=== PATIENT | female | born 1955 | race Caucasian/White ===

== ENCOUNTER 2017-04-01 02:54 | Inpatient (IN) | payer SELFPAY ==
[~2017-04-01] VITALS: Ht 152.4 cm; Wt 43.1 kg
[2017-04-01] VITALS (18 sets, daily range): BP systolic 123–185; BP diastolic 59–83
[2017-04-01] MEDS ORDERED: methylPREDNISolone SOD SUCC PF 125 MG/2 ML VIAL. IV ONE (03:15)
[2017-04-01] MEDS ORDERED: HYDROmorphone PF 1 MG/ML DISP.SYRIN IV/SQ PRN (03:15)
[2017-04-01] MEDS ORDERED: 0.9 % SODIUM CHLORIDE 10 ML DISP.SYRIN. IV PRN (03:15)
--- NOTE | 2017-04-01 03:27 | PHYS DOC ---
Past History Past Medical History: COPD Smoking: Cigarettes, Greater than 1 pack/day Adult General Chief Complaint Chief Complaint: shortness of breath [facility] HPI Patient is a pleasant 61-year-old female with a history of COPD who presents with sudden onset of chest pain and shortness of breath began about 2 hours prior to arrival. She is a female who smokes daily between a half pack and a pack. sHe normally uses her inhalers at home twice a day but woke up this morning with chest pressure and pain with palpitation and an increased heart rate. There is a remote history of questionable mitral valve prolapse as well as COPD. patient admits to fevers and chills with this productive cough and increasing chest pain. Pain is considered constant in the center of her chest with no radiation to her back or shoulders or arms. She cannot get comfortable and sits in a tripod position speaking only 2 to 4. sentences. Patient is not normally on oxygen at home. Review of Systems Review of Systems Constitutional: sHe describes some fevers and chills. Eyes: Denies change in visual acuity, redness, or eye pain [] HENT: Denies nasal congestion or sore throat [] Respiratory: He describes a productive cough with increasing shortness of breath. Cardiovascular: No additional information not addressed in HPI [] GI: Denies abdominal pain, nausea, vomiting, bloody stools or diarrhea [] : Denies dysuria or hematuria [] Musculoskeletal: Denies back pain or joint pain [] Integument: Denies rash or skin lesions [] Neurologic: Denies headache, focal weakness or sensory changes [] Endocrine: Denies polyuria or polydipsia [] Physical Exam Physical Exam Constitutional: Patient is very frail thin cachectic and in obvious distress. She is sitting in a tripod position speaking in 4 word sentences there is no obvious retractions but patient has some difficulty breathing. HENT: Normocephalic, atraumatic, bilateral external ears normal, very dry mucous membranes, no oral exudates, nose normal. Impression demonstrates temporal wasting bilaterally [] Eyes: PERRLA, EOMI, conjunctiva normal, no discharge. [] Neck: Normal range of motion, no tenderness, supple, no stridor. [] Cardiovascular: Tachycardia with a irregular irregular rhythm Lungs & Thorax: Decreased breath sounds bilaterally with prolonged exhalation wheezes throughout the lung bases bilaterally with coarse rhonchi Abdomen: Bowel sounds normal, soft, no tenderness, no masses, no pulsatile masses. [] Skin: Warm, dry, skin is pale with bruises in those states of healing. Back: No tenderness, Extremities: No tenderness, no cyanosis, no clubbing, ROM intact, no edema. [] Neurologic: Alert and oriented X 3, normal motor function, normal sensory function, no focal deficits noted. [] Psychologic: She is very anxious but judgment is normal. Patient's cognition seems to be intact. Current Patient Data Vital Signs Vital Signs Date Time Temp Pulse Resp B/P (MAP) Pulse Ox O2 Delivery O2 Flow Rate FiO2 04/01/17 03:35 135 110/50 Vital Signs Date Time Temp Pulse Resp B/P (MAP) Pulse Ox O2 Delivery O2 Flow Rate FiO2 04/01/17 03:35 135 110/50 Lab Results Laboratory Tests Test 04/01/17 03:10 04/01/17 03:15 Blood pH 7.41 (7.35-7.45) Blood Gas PCO2 24 mmHg (35-45) L Blood Gas PO2 64 mmHg (80-100) L Blood Gas HCO3 15 mmol/L (22-26) L Arterial Bld O2 Saturation (Calc) 93 % (92-99) FiO2 36 % Sodium Level 134 mmol/L (136-145) L Potassium Level 4.0 mmol/L (3.5-5.1) Chloride Level 98 mmol/L (98-107) Carbon Dioxide Level 19 mmol/L (21-32) L Anion Gap 17 (6-14) H Blood Urea Nitrogen 58 mg/dL (7-20) H Creatinine 4.1 mg/dL (0.6-1.0) H Estimated GFR (Cockcroft-Gault) 11.0 BUN/Creatinine Ratio 14 (6-20) Glucose Level 102 mg/dL (70-99) H Lactic Acid Level 2.0 mmol/L (0.4-2.0) Calcium Level 9.3 mg/dL (8.5-10.1) Magnesium Level 2.1 mg/dL (1.8-2.4) Total Bilirubin 0.8 mg/dL (0.2-1.0) Aspartate Amino Transferase (AST) 34 U/L (15-37) Alanine Aminotransferase (ALT) 47 U/L (14-59) Alkaline Phosphatase 298 U/L (46-116) H Creatine Kinase 166 U/L (26-192) Creatine Kinase MB (Mass) 3.9 ng/mL (0.0-3.6) H Creatine Kinase MB Relative Index 2.3 % (0-4) Troponin I Quantitative 0.098 ng/mL (0-0.055) H BN-Mlw-Q-Type Natriuretic Peptide Pending Total Protein 7.8 g/dL (6.4-8.2) Albumin 3.1 g/dL (3.4-5.0) L Albumin/Globulin Ratio 0.7 (1.0-1.7) L Lipase 105 U/L (73-393) Laboratory Tests Test 04/01/17 03:15 Lactic Acid Level 2.0 mmol/L (0.4-2.0) EKG EKG [] EKG timed 3:14 AM 04/01/2017 demonstrates a tachycardia of 152 is irregular and narrow in nature. There is no discernible P waves every QRS. The QRS width is normal at 96. QTc is 481 which is mildly elevated. There is no ST segment T- wave changes consistent with acute cardiac ischemia at this rate is a small right anterior fascicular block. There is also some demonstration of LVH in aVL greater than 11 mV. EKG read by Dr. Duval Radiology/Procedures Radiology/Procedures [] Single view AP chest film from 3:36 AM 04/01/[address] Duval shows mild cardiomegaly with haziness along the right heart border nose distinct infiltrate. Patient has increased pulmonary markings and hyperinflation consistent with COPD exacerbation. Patient may have a mass in the right lower lung measuring once admitted by 1 cm on the lateral aspect of the lung field. Patient is no pneumothorax no pneumomediastinum or air under the diaphragm. Course & Med Decision Making Course & Med Decision Making Pertinent Labs and Imaging studies reviewed. (See chart for details) upon arrival I reviewed nursing notes vital signs history and physical findings as well as EMS report. Patient presents with a tachycardia that is irregular. She is also short of breath with wheezing. We will initially begin with fluids, Solu -Medrol, and DuoNeb as for her lungs we will draw lactic acid and blood cultures provider oxygen supplementation and something for her anxiety. We will empirically treat her with antibiotics. She will also have a CBC, CMP, troponin , CK-MB, TSH, chest x-ray EKG completed. Patient will also be given aspirin, fentanyl, and an ABG will be completed. At this point patient will be also provided a dose of diltiazem to try to rate control the age or fibrillation. Once patient's is stabilized we will analyze ABG and determine if we need to use CPAP to treat her symptoms. Differential diagnosis: Acute myocardial ischemia, heart failure, cardiac tamponade, bronchospasm, pulmonary embolism, pneumothorax, pulmonary infection i.e. bronchitis or pneumonia, upper airway obstruction, anaphylaxis, aspiration , psychogenic, pulmonary contusion, toxidrome, pneumomediastinum, noncardiogenic pulmonary edema or ARDS, COPD, tuberculosis, cystic fibrosis, asthma, high altitude pulmonary edema, valvular dysfunction, cardiac dysrhythmia , stroke, neuromuscular diseases like myasthenia gravis gravis, ALS, Guillain- Beltran syndrome, metabolic acidosis to include diabetic ketoacidosis, sepsis, and obstructive disorders like massive obesity considered upon arrival. Patient tells me that their symptoms given during CC are improved. Time is now 3 :55 AM patient received DuoNeb, Solu-Medrol, fluids, anxiety medications and dose of diltiazem in an attempt to rate control her atrial fibrillation. She started feeling markedly better. Jewelry Casting Model Maker Apprentice note: Dr. Muller Jewelry Casting Model Maker Apprentice called at of the service called service at 3:43 AM Consult called back at 3:43 AM Discussed the case I presented and they agreed with admission. Time of acceptance 3:43 am. This patient had not received the full treatment, it was apparent on her full dictation that she would likely not be going home. Patient' s heart rate at 355 is still 120s. She will received a second dose of diltiazem and put on a diltiazem drip if required the help rate control her. Her ABG which came back at approximately 3:36 AM demonstrates a pH 7.4 PCO2 of 24 PaO2 of 54 bicarbonate 15. This demonstrates respiratory alkalosis with likely a metabolic acidosis she will continue on the nasal cannula's with DuoNeb's. She' s been given a dose of Rocephin antibiotics after blood cultures and lactic acid been completed. In anticipation that she might have pneumonia associated with her respiratory difficulties. [] Impression: COPD exacerbation, chest pain secondary to age or fibrillation RVR I spent approximately 45-50 minutes working and engaged directly in the patient care providing critical care evaluation this includes but not limited to time spent engaged in work directly related to the individual patients care. I spent time at the bedside, reviewing test results, discussing the case with staff, documenting the medical record and time spent with EMS discussing specific treatment issues when the patient presented and during his evaluation. Lab called at approximately 4:19 AM with an elevated troponin 0.09. I believe that this may be associated with patient's rate of 140 and her history of COPD and chronic lung disease. I will page cardiology available accountant controller discuss this case. Jewelry Casting Model Maker Apprentice note: Cardiology on-call Jewelry Casting Model Maker Apprentice called at of the service called at 4:20 AM Consult called back at 4:25 AM Discussed the case I presented and they agreed with admission. Time of acceptance he agreed with treatment plan of diltiazem for rate control and on a drip. He also suggested possibly a 0.5 mg dose of digoxin IV slow push out with her rate. Although her troponin is mildly elevated I believe is related to rate. Will see this patient in the ICU in about 2 hours. If her troponins continue to trend up and her EKG has any changes we will transfer to [facility] for PCI intervention if necessary or cardioversion if her symptoms continue. It is also noted that her troponin may be elevated secondary to her renal failure. Patient has already received 1 L of fluids here in the emergency department. She is also receiving a continued maintenance fluids in the ICU. We may need to be more aggressive with fluid management the suprapubic or kidney function to return. Dragon Disclaimer Dragon Disclaimer This chart was dictated in whole or in part using Voice Recognition software in a busy, high-work load, and often noisy Emergency Department environment. It may contain unintended and wholly unrecognized errors or omissions. Departure Departure: Impression: Primary Impression: COPD exacerbation Additional Impressions: Chest pain Atrial fibrillation with RVR Elevated troponin Renal failure Disposition: ADMITTED INPATIENT Admitting Physician: Jeanie Muller Condition: GUARDED Referrals: WINIFRED CARBAJAL DO (PCP) Problem Qualifiers NIRAJ DUVAL MD Apr 01, 2017 03:27
[2017-04-01] MEDS ORDERED: dilTIAZem 25 MG/5 ML VIAL IVP ONE ×2 (03:30→04:30)
[2017-04-01] MEDS ORDERED: LORazepam 2 MG/ML VIAL ONE (03:37)
[2017-04-01] MEDS ORDERED: IV NORMAL SALINE 1,000ML 1,000 ML IV SCH ×2 (03:54→04:00)
[2017-04-01] MEDS ORDERED: ACETAMINOPHEN 325 MG TABLET PO PRN (04:00)
[2017-04-01] MEDS ORDERED: ONDANSETRON PF 4 MG/2 ML VIAL. IV PRN (04:00)
[2017-04-01] MEDS ORDERED: NITROGLYCERIN SUBLINGUAL 0.4 MG BOTTLE OF 25. SL PRN (04:00)
[2017-04-01] MEDS ORDERED: IPRATRPIUM/ALBUTEROL 0.5/2.5MG 3 ML NEBU. NEB ONE ×3 (04:00→04:30)
[2017-04-01] MEDS ORDERED: LORazepam 2 MG/ML VIAL IV ONE (04:00)
[2017-04-01] MEDS ORDERED: ASPIRIN 81 MG TAB.CHEW PO ONE (04:00)
[2017-04-01] MEDS ORDERED: HYDROmorphone PF 1 MG/ML DISP.SYRIN IV PRN (04:00)
[2017-04-01 04:13] LABS: ALBUMIN 3.1 g/dL (3.4-5.0); ALBUMIN/GLOBULIN RATIO 0.7 (1.0-1.7); CALCIUM 9.3 mg/dL (8.5-10.1); CREATININE 4.1 mg/dL (0.6-1.0); MAGNESIUM 2.1 mg/dL (1.8-2.4); TOTAL BILIRUBIN 0.8 mg/dL (0.2-1.0); TOTAL PROTEIN 7.8 g/dL (6.4-8.2)
[2017-04-01] MEDS ORDERED: cefTRIAXone SODIUM 1 GM VIAL IV ONE (04:18)
[2017-04-01] MEDS ORDERED: IV NORMAL SALINE 50ML 50 ML ONE (04:18)
[2017-04-01 04:19] LABS: BASO # 0.2 x10^3/uL (0.0-0.2); BASO % 1 % (0-3); EOS # 0.4 x10^3/uL (0.0-0.7); EOS % 2 % (0-3); HEMATOCRIT 31.6 % (36.0-47.0); HEMOGLOBIN 10.6 g/dL (12.0-15.5); LYMPH # 3.6 x10^3/uL (1.0-4.8); LYMPH % 20 % (24-48); MEAN CORPUSCULAR HEMOGLOBIN 29 pg (25-35); MEAN CORPUSCULAR HGB CONC 33 g/dL (31-37); MEAN CORPUSCULAR VOLUME 87 fL (79-100); MONO # 1.2 x10^3/uL (0.0-1.1); MONO % 7 % (0-9); NEUT # 12.2 x10^3uL (1.8-7.7); NEUT % 69 % (31-73); PLATELET COUNT 380 x10^3/uL (140-400); RED BLOOD COUNT 3.65 x10^6/uL (3.50-5.40); WHITE BLOOD COUNT 17.7 x10^3/uL (4.0-11.0)
[2017-04-01 04:28] LABS: BGAS PH 7.41 (7.35-7.45)
[2017-04-01] MEDS ORDERED: DIGOXIN IV 500 MCG/2 ML AMPUL. IV ONE (04:45)
[2017-04-01] MEDS ORDERED: IV DEXTROSE 5% 100 ML IV ONE (04:46)
[2017-04-01 05:39] LABS: % BANDS 6 % (0-9); % EOS 2 % (0-5); % LYMPHS 19 % (24-48); % MONOS 8 % (0-10); % SEGS 65 % (35-66); PLT ESTIMATE ADEQUATE (ADEQUATE)
[2017-04-01] MEDS: IPRATRPIUM/ALBUTEROL 0.5/2.5MG 3 ML NEBU. NEB SCH ×5 (06:31→21:05)
--- NOTE | 2017-04-01 06:44 | EKG ---
[address] [address] Test Date: 2017-04-01 Test Time: 03:14:36 Pat Name: MICHELLE HEALY Department: Room: Gender: F Inside Sales Manager: PEACE : [id number] Requested By: NIRAJ DUVAL Order Number: [id number] Reading MD: Measurements Intervals [place] Rate: 152 P: AK: QRS: -66 QRSD: 96 T: 77 QT: 298 QTc: 481 Interpretive Statements ATRIAL FIB./FLUTTER WITH RAPID VENTRICULAR RESPONSE ABNORMAL LEFT AXIS DEVIATION R-S TRANSITION ZONE IN V LEADS DISPLACED TO THE RIGHT LEFT ANTERIOR FASCICULAR BLOCK LVH WITH REPOLARIZATION ABNORMALITY QRS(T) CONTOUR ABNORMALITY CANNOT RULE OUT ANTEROSEPTAL MYOCARDIAL DAMAGE RI6.01 Unconfirmed report No previous ECG available for comparison
--- NOTE | 2017-04-01 07:30 | RAD ---
Exam performed: Single view chest History: Shortness of breath, chest pain, history of CVA. Date of service: 04/01/17. Comparison: 2 view chest from 03/04/16. Single AP upright portable view chest findings: Heart size is mildly enlarged, however stable. Pulmonary vascularity is unremarkable. Both lungs are hyperinflated consistent with previously known COPD and emphysema. No focal infiltrates, effusion or pneumothorax is seen. Calcified cardiomegaly in the right mid lung. Bones are normal. Impression: Stable mild cardiomegaly. COPD and emphysematous changes. No acute abnormality
[2017-04-01] MEDS ORDERED: amLODIPine BESYLATE 10 MG TABLET PO SCH (09:00)
[2017-04-01] MEDS ORDERED: AMLO10TA4 PO (09:15)
[2017-04-01] MEDS ORDERED: LISI1TAB7 PO (09:16)
[2017-04-01 09:30] LABS: ALBUMIN 2.4 g/dL (3.4-5.0); ALBUMIN/GLOBULIN RATIO 0.6 (1.0-1.7); CALCIUM 8.2 mg/dL (8.5-10.1); CREATININE 3.9 mg/dL (0.6-1.0); GFR 11.6; POTASSIUM 4.2 mmol/L (3.5-5.1); TOTAL BILIRUBIN 0.5 mg/dL (0.2-1.0); TOTAL PROTEIN 6.3 g/dL (6.4-8.2)
[2017-04-01] MEDS: IV RINGERS SOLUTION,LACTATED 1,000 ML IV SCH (11:00)
--- NOTE | 2017-04-01 11:53 | HP ---
ADMIT DATE: 04/01/2017 REASON FOR ADMISSION: Atrial fibrillation with rapid ventricular response. HISTORY OF PRESENT ILLNESS: This is a 61-year-old female who is reporting a several day history of shortness of breath, productive cough, fever and chills, racing heart, and positive white sputum, and so presented to the Emergency Room. PAST MEDICAL HISTORY: Asthma, hypertension, COPD, tobacco use disorder. Other chart review, echo from 08/2015 shows moderate aortic regurgitation, mild mitral valve stenosis, mild mitral regurgitation, preserved ejection fraction greater than 170% and moderate concentric left ventricular hypertrophy. The patient states she has chronic kidney disease and was told that she would need dialysis at some point. PAST SURGICAL HISTORY: Cholecystectomy, hysterectomy, and tonsillectomy. MEDICATIONS: Advair inhaler, Proventil inhaler. She thinks she is on lisinopril 20/25 and Norvasc 10 mg daily. She gets her care at [facility], but has not been there in over a year. REVIEW OF SYSTEMS: Positive for some weight loss. She now weighs 88 pounds, was 120 pounds, does not know why. A little bit sore throat, ongoing shortness of breath, and no chest pain. HABITS: The patient smoked a half pack per day for 20 years. No alcohol. She lives in her own home. She has one child. She lives with her . 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 PHYSICAL EXAMINATION: VITAL SIGNS: Blood pressure is 156/70, pulse 84, respirations 23, pulse ox is 98% on 2 liters. Initial admission pulse was 140 and requiring oxygen at that time. GENERAL: The patient's height is 60 inches, weight 195 pounds. Color is slightly pale. HEENT: She has skin defect above the right eye consistent with probably ruptured cyst of some kind. Her nose was patent. Her throat was clear. NECK: Supple. LUNGS: With diffuse congestion and wheezes and rhonchi. CARDIOVASCULAR: Currently irregular rhythm and rate with a loud aortic and mitral murmur heard throughout the precordium. ABDOMEN: Soft and nontender. EXTREMITIES: Without edema. LABORATORY DATA: Blood gas, CO2 24, pH 7.41, pO2 was 64. Chemistry: CO2 is 18. Her BUN was 58, creatinine was 4.1, and is now 60 with a creatinine of 3.9. BNP 49,780. Troponin 0.098, it is increased to 0.239. IMAGING: EKG was atrial fibrillation with rapid ventricular response, now converted on the Cardizem drip. ASSESSMENT: 1. Atrial fibrillation with rapid ventricular response. 2. Congestive heart failure. 3. Moderate aortic regurgitation. 4. Mild mitral regurgitation. 5. Left ventricular hypertrophy. 6. Tobacco use disorder. 7. Elevated troponin, questionable etiology, may be from the kidneys. 8. Chronic kidney disease, stage 4. 9. Weight loss. 10. Moderate protein-calorie malnutrition. 11. Metabolic acidosis, severe protein-calorie malnutrition. PLAN: Cardiology has been consulted. We will switch from Norvasc to p.o. Cardizem. The drip will be stopped, we are giving her some steroids, breathing treatments, antibiotics for the chronic obstructive pulmonary disease and Cardiology will be assisting, she is receiving some light hydration in the hope of improving her kidney function. KATIE KU DO DR: ESTRELLA/kira JOB#: [id number] / [id number]
--- NOTE | 2017-04-01 12:29 | PDOC2 ---
ODILIA PARRISH TRANSIT PLANNING MANAGER 04/01/17 1229: CONSULT Date of Admission DATE: 04/01/17 TIME: 12:11 Reason for Consult: Chest pain Referring Physician: Dr Muller Problem List Problems Medical Problems: (1) Atrial fibrillation with RVR Status: Acute (2) Chest pain Status: Acute (3) COPD exacerbation Status: Acute (4) Elevated troponin Status: Acute (5) Renal failure Status: Acute History of Present Illness This is a pleasant 61-year-old female who presented to the emergency room via EMS with chief complaint of palpitations and chest pain. She has a past medical history of hypertension, aortic stenosis, asthma and tobacco abuse. Over the last week she has been feeling poorly in the last 3 days her heart has been racing off and on. She has had a hard time catching her breath and can hear herself wheezing. She is bringing up sputum but denies any fever or chills. Last night when she went to bed she awoke in the middle of the night with severe chest pressure she felt like she could not get any air and had her called the ambulance. The pain improved in the emergency room with pain medication however she can still feel it to a minor degree now. It increases with deep breathing and cough and feels better when she is sitting completely still. On admission last night she was in AFib with RVR her palpitations this morning have resolved since she has converted back into sinus rhythm. She continues to struggle with shortness of breath but tells me her baseline she is short of breath with most activities. Her creatinine on admission was 4.1, she was told by [facility] that she would likely need dialysis in the future but she did not have the money to go see a proof plate maker. She has been feeling lightheaded and having problems with nausea and vomiting the last several weeks. REVIEW OF SYSTEMS: Review of 10 organ systems is negative except for as in HPI. PAST MEDICAL HISTORY: Aortic stenosis. Hypertension. Asthma. COPD. Tobacco abuse. PAST SURGICAL HISTORY: Hysterectomy. Cholecystectomy (gallbladder). SOCIAL HISTORY: The patient is . She is unemployed at the time. The patient reports current tobacco use until about 3 days ago when a she was no longer able to smoke because her lungs felt so bad. The patient reports occasional alcohol use. FAMILY HISTORY: Father is at age 63 with a history of heart attack. Mother is at age 62 with a history of heart attack. The patient has 1 child who is alive and well. Allergies - Codeine Sulfate Objective GENERAL: This is a well developed, cachectic female. No apparent distress. SKIN: Warm and dry with normal skin turgor. Negative for pallor. No lesions or rashes noted. EYES: Conjunctiva are clear. Extraocular movements are intact. No xanthelasma. HEAD AND NECK: Oral mucosa is moist. There is no cyanosis. Neck is supple. Jugular venous pressure is flat. Carotid pulses are 2/2 bilaterally, with bilateral carotid bruits versus radiated murmur, left greater than right. There is no obvious thyromegaly. HEART: Regular rate and rhythm. Normal S1 and S2. No S3. No S4. + systolic ejection murmur. LUNGS: Effort is Labored. Wheezes to auscultation bilaterally. No crackles. No rhonchi. ABDOMEN: Normal active bowel sounds. Soft. Nontender. EXTREMITIES: No clubbing. No cyanosis. No edema of lower extremities. Palpable pedal pulses. MUSCULOSKELETAL: No kyphosis. No scoliosis. No localized tenderness or stiffness. Gait appears normal. NEUROLOGIC: Alert and oriented times three. Cranial nerves III-XII are grossly intact. Good motor tone and strength in the upper and lower extremities bilaterally. PSYCHOLOGIC: This is a pleasant patient with a normal affect. ECHOCARDIOGRAM (05/18/2012): Normal left ventricular chamber size. There is mild concentric left ventricular hypertrophy with septal predominance. Normal regional wall motion. Normal left ventricular systolic function. Left ventricular ejection fraction is 70-75%. Impaired relaxation filling pattern for age. Doppler and color-flow analysis revealed mild to moderate aortic insufficiency. Mild to moderate aortic stenosis with a mean gradient of 22 mmHg, a peak gradient of 39 mmHg, and a calculated aortic valve area of 2.1 cm2. There does appear to be a slight "hockey stick" appearance to the posterior leaflet of the mitral valve, which is suggestive of rheumatic mitral valve disease but without mitral stenosis. Doppler and color-flow analysis revealed mild mitral and tricuspid regurgitation. The pulmonary artery pressure cannot be estimated on this study. CAROTID ULTRASOUND (04/28/2012): Atherosclerotic plaquing at both carotid bifurcations. No evidence of hemodynamically stenosis at either carotid ELECTROCARDIOGRAM (04/16/2012): Sinus rhythm with left ventricular hypertrophy, left anterior hemiblock and poor R wave progression. PULMONARY FUNCTION TEST ( 03/11/2012): Normal spirometry (preliminary report). Impression and Plan Chest pain - elevated troponin - there are no acute ischemic changes on her EKG although she does have left anterior fascicular block with LVH. At this point she is not having active angina so will hold off on cardiac catheterization until we can see if her kidneys improve with hydration. Plan for echocardiogram today and will repeat troponin at 3 p.m.. If she develops acute chest pain plan to transfer for cardiac catheterization and dialysis. Atrial fibrillation, paroxysmal. She has converted with IV Cardizem will change to oral. Her chadsVasc score is 2. At this point we will continue with aspirin until we determine her need for cardiac catheterization, then we will plan to add anticoagulation. This was likely brought on by her exacerbation of COPD and her longstanding history of hypertension. Hypertension, We stopped her lisinopril hydrochlorothiazide and amlodipine and started her on Cardizem 240 daily. May need to consider adding hydralazine if her pressures are running high. Aortic stenosis -plan to repeat echocardiogram. Exacerbation of COPD - treatment per primary care provider Acute on chronic renal failure -this could be elevating her troponin also. Continue to monitor and IV fluids. Asthma. Continue inhaler per primary provider. Quit smoking. Tobacco abuse. Cessation strongly advised. Current Medications Current Medications Aspirin (Children'S Aspirin) 324 mg 1X ONCE PO Last administered on 04/01/17 04:00; Start 04/01/17 at 04:00; Stop 04/01/17 at 04:01; Status DC Lorazepam (Ativan) 1 mg 1X ONCE IV Last administered on 04/01/17 03:47; Start 04/01/17 at 04:00; Stop 04/01/17 at 04:01; Status DC Hydromorphone HCl (Dilaudid) 1 mg PRN Q15MIN PRN IV/SQ PAIN GREATER THAN 3/10; Start 04/01/17 at 03:15; Stop 04/01/17 at 07:46; Status DC Sodium Chloride 1,000 ml @ 1,000 mls/hr Q1H IV Last administered on 04/01/17 03:47; Start 04/01/17 at 04:00; Stop 04/01/17 at 04:59; Status DC Sodium Chloride (Normal Saline Flush) 10 ml QSHIFT PRN IV AFTER MEDS AND BLOOD DRAWS; Start 04/01/17 at 03:15 Albuterol/ Ipratropium (Duoneb) 3 ml 1X ONCE NEB Last administered on 03:46; Start 04/01/17 at 04:00; Stop 04/01/17 at 04:01; Status DC Methylprednisolone Sodium Succinate (SOLU-Medrol 125MG VIAL) 125 mg 1X ONCE IV Last administered on 04/01/17 03:34; Start 04/01/17 at 03:15; Stop 04/01/17 at 03:39; Status DC Diltiazem HCl (Cardizem) 20 mg 1X ONCE IVP Last administered on 04/01/17 03: 35; Start 04/01/17 at 03:30; Stop 04/01/17 at 03:39; Status DC Lorazepam (Ativan) 2 mg STK-MED ONCE .ROUTE ; Start 04/01/17 at 03:37; Stop at 03:38; Status DC Ceftriaxone Sodium 1 gm/ Sodium Chloride 50 ml @ 100 mls/hr 1X ONCE IV Last administered on 04/01/17 04:24; Start 04/01/17 at 04:30; Stop 04/01/17 at 04:59 ; Status DC Albuterol/ Ipratropium (Duoneb) 3 ml 1X ONCE NEB Last administered on 04:09; Start 04/01/17 at 04:00; Stop 04/01/17 at 04:01; Status DC Albuterol/ Ipratropium (Duoneb) 3 ml 1X ONCE NEB Last administered on 06:30; Start 04/01/17 at 04:30; Stop 04/01/17 at 04:31; Status DC Ondansetron HCl (Zofran) 4 mg PRN Q4HRS PRN IV NAUSEA/VOMITING; Start 04/01/17 at 04:00; Stop 04/02/17 at 03:59 Sodium Chloride 1,000 ml @ 100 mls/hr Q10H IV Last administered on 04/01/17 04:45; Start 04/01/17 at 03:54; Stop 04/01/17 at 10:33; Status DC Acetaminophen (Tylenol) 650 mg PRN Q4HRS PRN PO FEVER; Start 04/01/17 at 04:00 ; Stop 04/02/17 at 03:59 Nitroglycerin (Nitrostat) 0.4 mg PRN Q5MIN PRN SL CHEST PAIN; Start 04/01/17 at 04:00; Stop 04/02/17 at 03:59 Hydromorphone HCl (Dilaudid) 1 mg PRN Q2HR PRN IV SEVERE PAIN; Start 04/01/17 at 04:00; Stop 04/02/17 at 03:59 Albuterol/ Ipratropium (Duoneb) 3 ml RTQID NEB Last administered on 04/01/17 10:59; Start 04/01/17 at 08:00; Stop 04/01/17 at 11:34; Status DC Diltiazem HCl (Cardizem) 25 mg 1X ONCE IVP Last administered on 04/01/17 04: 56; Start 04/01/17 at 04:30; Stop 04/01/17 at 04:31; Status DC Diltiazem HCl 125 mg/Dextrose 125 ml @ 0 mls/hr 1X ONCE IV Last administered on 04/01/17 04:55; Start 04/01/17 at 04:15; Stop 04/01/17 at 09:45; Status DC Sodium Chloride 50 ml @ As Directed STK-MED ONCE .ROUTE ; Start 04/01/17 at 04: 18; Stop 04/01/17 at 04:19; Status DC Ceftriaxone Sodium (Rocephin) 1 gm STK-MED ONCE IV ; Start 04/01/17 at 04:18; Stop 04/01/17 at 04:19; Status DC Digoxin (Lanoxin) 500 mcg 1X ONCE IV Last administered on 04/01/17 04:34; Start 04/01/17 at 04:45; Stop 04/01/17 at 04:46; Status DC Dextrose 100 ml @ As Directed STK-MED ONCE IV ; Start 04/01/17 at 04:46; Stop 04/01/17 at 04:47; Status DC Diltiazem HCl (Cardizem) 125 mg STK-MED ONCE IV ; Start 04/01/17 at 04:46; Stop 04/01/17 at 09:45; Status DC Prednisone (Prednisone) 40 mg DAILY16 PO ; Start 04/01/17 at 16:00 Amlodipine Besylate (Norvasc) 10 mg DAILY PO ; Start 04/01/17 at 09:00; Stop at 09:45; Status DC Diltiazem HCl (Cardizem 24hr Cd) 240 mg DAILY PO Last administered on t 10:06; Start 04/01/17 at 10:00; Stop 04/01/17 at 11:33; Status DC Lactated Ringer's 1,000 ml @ 75 mls/hr [id number] IV ; Start 04/01/17 at 11:00 Diltiazem HCl (Cardizem 24hr Cd) 240 mg DAILY PO ; Start 04/02/17 at 09:00 Albuterol/ Ipratropium (Duoneb) 3 ml RTQID NEB ; Start 04/01/17 at 12:00 Active Scripts Active Reported Lisinopril-Hctz 20-25 Mg Tab (Lisinopril/Hydrochlorothiazide) 1 Each Tablet 1 Tab PO DAILY Norvasc (Amlodipine Besylate) 10 Mg Tablet 1 Tab PO DAILY Allergies: Coded Allergies: codeine (Verified Allergy, Intermediate, 04/01/17) VITALS Vital Signs Date Time Temp Pulse Resp B/P (MAP) Pulse Ox O2 Delivery O2 Flow Rate FiO2 04/01/17 10:59 99 Nasal Cannula 2.0 04/01/17 10:06 81 174/77 04/01/17 09:38 24 04/01/17 06:12 99.0 Labs Laboratory Tests Test 04/01/17 03:10 04/01/17 03:15 04/01/17 09:08 Blood Gas pH 7.41 (7.35-7.45) Blood Gas PCO2 24 mmHg (35-45) Blood Gas PO2 64 mmHg (80-100) Blood Gas HCO3 15 mmol/L (22-26) Arterial Bld O2 Saturation (Calc) 93 % (92-99) FiO2 36 % White Blood Count 17.7 x10^3/uL (4.0-11.0) Red Blood Count 3.65 x10^6/uL (3.50-5.40) Hemoglobin 10.6 g/dL (12.0-15.5) Hematocrit 31.6 % (36.0-47.0) Mean Corpuscular Volume 87 fL (79-100) Mean Corpuscular Hemoglobin 29 pg (25-35) Mean Corpuscular Hemoglobin Concent 33 g/dL (31-37) Red Cell Distribution Width 14.0 % (11.5-14.5) Platelet Count 380 x10^3/uL (140-400) Neutrophils (%) (Auto) 69 % (31-73) Lymphocytes (%) (Auto) 20 % (24-48) Monocytes (%) (Auto) 7 % (0-9) Eosinophils (%) (Auto) 2 % (0-3) Basophils (%) (Auto) 1 % (0-3) Neutrophils # (Auto) 12.2 x10^3uL (1.8-7.7) Lymphocytes # (Auto) 3.6 x10^3/uL (1.0-4.8) Monocytes # (Auto) 1.2 x10^3/uL (0.0-1.1) Eosinophils # (Auto) 0.4 x10^3/uL (0.0-0.7) Basophils # (Auto) 0.2 x10^3/uL (0.0-0.2) Segmented Neutrophils % 65 % (35-66) Band Neutrophils % 6 % (0-9) Lymphocytes % 19 % (24-48) Monocytes % 8 % (0-10) Eosinophils % 2 % (0-5) Platelet Estimate Adequate (ADEQUATE) Sodium Level 134 mmol/L (136-145) 136 mmol/L (136-145) Potassium Level 4.0 mmol/L (3.5-5.1) 4.2 mmol/L (3.5-5.1) Chloride Level 98 mmol/L (98-107) 103 mmol/L (98-107) Carbon Dioxide Level 19 mmol/L (21-32) 18 mmol/L (21-32) Anion Gap 17 (6-14) 15 (6-14) Blood Urea Nitrogen 58 mg/dL (7-20) 60 mg/dL (7-20) Creatinine 4.1 mg/dL (0.6-1.0) 3.9 mg/dL (0.6-1.0) Estimated GFR (Cockcroft-Gault) 11.0 11.6 BUN/Creatinine Ratio 14 (6-20) 15 (6-20) Glucose Level 102 mg/dL (70-99) 133 mg/dL (70-99) Lactic Acid Level 2.0 mmol/L (0.4-2.0) Calcium Level 9.3 mg/dL (8.5-10.1) 8.2 mg/dL (8.5-10.1) Magnesium Level 2.1 mg/dL (1.8-2.4) Total Bilirubin 0.8 mg/dL (0.2-1.0) 0.5 mg/dL (0.2-1.0) Aspartate Amino Transf (AST/SGOT) 34 U/L (15-37) 23 U/L (15-37) Alanine Aminotransferase (ALT/SGPT) 47 U/L (14-59) 36 U/L (14-59) Alkaline Phosphatase 298 U/L (46-116) 226 U/L (46-116) Creatine Kinase 166 U/L (26-192) Creatine Kinase MB (Mass) 3.9 ng/mL (0.0-3.6) Creatine Kinase MB Relative Index 2.3 % (0-4) Troponin I Quantitative 0.098 ng/mL (0-0.055) 0.239 ng/mL (0-0.055) SL-Fqn-W-Type Natriuretic Peptide 46000 pg/mL (0-124) Total Protein 7.8 g/dL (6.4-8.2) 6.3 g/dL (6.4-8.2) Albumin 3.1 g/dL (3.4-5.0) 2.4 g/dL (3.4-5.0) Albumin/Globulin Ratio 0.7 (1.0-1.7) 0.6 (1.0-1.7) Lipase 105 U/L (73-393) MOHAMUD NAGEL Jr, MD 04/02/17 0640: CONSULT Allergies: Coded Allergies: codeine (Verified Allergy, Intermediate, 04/01/17) Assessment/Plan The patient was seen by Odilia Parrish APRN and I have reviewed her findings and plan and agree with above. Due to staffing constraints, we did not have an attending available on this day to see the patient. Problems: ODILIA PARRISH APRN Apr 01, 2017 12:29 MOHAMUD NAGEL Jr, MD Apr 02, 2017 06:40
[2017-04-01] MEDS: ASPIRIN ENTERIC COATED 81 MG TABLET.DR. PO SCH (13:07)
[2017-04-01] MEDS ORDERED: hydrALAZINE 25 MG TABLET PO SCH (14:00)
[2017-04-01] MEDS ORDERED: IPRATRPIUM/ALBUTEROL 0.5/2.5MG 3 ML NEBU. NEB PRN (15:30)
[2017-04-01] MEDS ORDERED: LORazepam 2 MG/ML VIAL IV PRN (16:00)
[2017-04-01] MEDS ORDERED: predniSONE 20 MG TABLET PO SCH (16:00)
[2017-04-01] MEDS ORDERED: hydrALAZINE 25 MG TABLET PO ONE (16:30)
--- NOTE | 2017-04-01 17:06 | EKG ---
[facility] [address] [place] [address] Test Date: 2017-04-01 Test Time: 15:03:47 Pat Name: MICHELLE HEALY Department: Room: [place] [address] Gender: F Advertising Sales Assistant: : [id number] Requested By: KATIE KU Order Number: [id number] Reading MD: Measurements Intervals [place] Rate: P: DE: QRS: QRSD: T: QT: QTc: Interpretive Statements
[2017-04-01] MEDS: LORazepam 2 MG/ML VIAL IV PRN (18:08)
[2017-04-01 18:28] LABS: BACTERIA,URINE FEW /HPF (0-FEW); BILIRUBIN,URINE NEG (NEG); CLARITY,URINE HAZY; COLOR,URINE YELLOW; GLUCOSE,URINE NEG (NEG); NITRITE,URINE NEG (NEG); SQUAMOUS EPITHELIAL CELL,UR MANY /LPF; UROBILINOGEN,URINE 0.2 mg/dL (0.2 mg/dL)
[2017-04-01] MEDS: DOXYCYCLINE HYCLATE 100 MG TABLET PO SCH (20:44)
[2017-04-01] MEDS: hydrALAZINE 25 MG TABLET PO SCH (20:45)
[2017-04-02] VITALS (11 sets, daily range): BP systolic 133–173; BP diastolic 57–89
[2017-04-02] MEDS: LORazepam 2 MG/ML VIAL IV PRN ×2 (03:14→09:58)
[2017-04-02] MEDS: IV RINGERS SOLUTION,LACTATED 1,000 ML IV SCH (03:16)
[2017-04-02] MEDS: IPRATRPIUM/ALBUTEROL 0.5/2.5MG 3 ML NEBU. NEB SCH ×2 (05:03→09:55)
[2017-04-02 06:11] LABS: HEMATOCRIT 24.4 % (36.0-47.0); HEMOGLOBIN 8.3 g/dL (12.0-15.5); RED BLOOD COUNT 2.84 x10^6/uL (3.50-5.40); RED CELL DISTRIBUTION WIDTH 13.8 % (11.5-14.5); WHITE BLOOD COUNT 15.5 x10^3/uL (4.0-11.0)
[2017-04-02 06:33] LABS: ALBUMIN 2.6 g/dL (3.4-5.0); ALBUMIN/GLOBULIN RATIO 0.7 (1.0-1.7); CALCIUM 8.4 mg/dL (8.5-10.1); CREATININE 3.9 mg/dL (0.6-1.0); GFR 11.6; MAGNESIUM 1.8 mg/dL (1.8-2.4); TOTAL BILIRUBIN 0.3 mg/dL (0.2-1.0); TOTAL PROTEIN 6.4 g/dL (6.4-8.2)
--- NOTE | 2017-04-02 06:39 | ACF ---
Admission Criteria Forms COPD Clinical Indications for Admission to Inpatient Care (Irving/check or initial the applicable condition/criteria) Admission is indicated for ANY ONE of the following (1)(2)(3): [X]I. Acute exacerbation by high-risk comorbidity(e.g., pneumonia, dysrhythmia, heart failure, pleural effusion, pneumothorax) or severe underlying COPD (eg, baseline FEV1 less than 50% predicted) [ ]II. Inpatient admission required[A] rather than observation care (see Chronic Obstructive Pulmonary Disease: Observation Care) because of ANY ONE of the following: [ ]a) New or pre-existing signs or symptoms of COPD (eg, dyspnea or Tachypnea at rest or with minimal activity) that persist despite outpatient and observation care treatment [ ]b) New-onset hypoxemia (room air SaO2 less than 90%, PO2 less than 60 mm Hg (8.0 kPa)) that persists despite outpatient and observation care treatment [ ]c) Worsening of pre-existing hypoxemia (eg, new or increased requirement for supplemental oxygen to maintain oxygenation at baseline level) that persists despite outpatient and observation care treatment, with oxygen treatment needs performable only in acute inpatient setting [ ]d) Hypercarbia (PCO2 greater than 40 mm Hg (5.3 kPa))-induced respiratory acidosis (pH less than 7.35) that persists despite outpatient and observation care treatment [ ]e) Supplemental oxygen or respiratory treatments for over 24 hours that are performable only in acute inpatient setting [ ]f) Chest tube placement with active evacuation (e.g., suction, drainage) (6) [ ]g) Other condition, treatment or monitoring requiring inpatient admission [ ]III. Planned invasive surgical or diagnostic procedures requiring acute- care hospitalization [ ]IV. Acute respiratory failure (e.g., uncompensated hypercarbia, severe hypoxemia) [ ]V. Severe comorbid condition (e.g., severe steroid myopathy, acute vertebral fracture) that has acutely worsened pulmonary function [ ]. Altered mental status that is severe or persistent Extended stay beyond goal length of stay may be needed for (29)(30)(31)(32)(33) : [ ]a ) Respiratory Failure. [ ]b) Severe or persisting hypoxemia or hypercarbia [ ]c) Severe or persistent dyspnea [ ]d) Clinically significant Comorbidities (e.g. chronic heart failure, atrial fibrillation with rapid response, pneumonia)(36) [ ]e) Malnutrition (33) The original [facility] content created by [facility] has been revised. The portions of the content which have been revised are identified through the use of italic text, and [facility] has neither reviewed nor approved the modified material. All other unmodified content is copyright [facility]. Please see references footnoted in the original [facility] edition 2015 Admission Criteria Met?: Yes ARMANI LAYTON Apr 02, 2017 06:39
[2017-04-02] MEDS: DOXYCYCLINE HYCLATE 100 MG TABLET PO SCH (07:41)
[2017-04-02] MEDS: hydrALAZINE 25 MG TABLET PO SCH (07:42)
[2017-04-02] MEDS: ASPIRIN ENTERIC COATED 81 MG TABLET.DR. PO SCH (07:42)
[2017-04-02] MEDS ORDERED: ACETAMINOPHEN 650 MG/20.3 ML SOLUTION. PO PRN (08:30)
[2017-04-02] MEDS ORDERED: ACETAMINOPHEN 500 MG TABLET PO PRN (08:30)
--- NOTE | 2017-04-02 08:52 | CARD ---
APPROVED REPORT EXAM: Two-dimensional and M-mode echocardiogram with Doppler and color Doppler. Other Information Quality : GoodHR: 81bpm Rhythm : NSR INDICATION Atrial Fibrillation Elevated troponin 2D DIMENSIONS RVDd2.6 (2.9-3.5cm)Left Atrium(2D)4.2 (1.6-4.0cm) IVSd1.5 (0.7-1.1cm)Aortic Root(2D)2.2 (2.0-3.7cm) LVDd4.0 (3.9-5.9cm)LVOT Diameter2.2 (1.8-2.4cm) PWd1.5 (0.7-1.1cm)LVDs2.2 (2.5-4.0cm) FS (%) 45.7 %SV55.3 ml LVEF(%)77.5 (>50%) Aortic Valve AoV Peak Kennedy.294.9cm/sAoV VTI59.6cm AO Peak GR.34.8mmHgLVOT Peak Kennedy.173.5cm/s LVOT VTI 40.74cmAO Mean GR.19mmHg DANIEL (VMAX)2.38cf9CBX (VTI)2.54cm2 Mitral Valve MV E Juhletbw457.2cm/sMV E Peak Gr.19mmHg MV DECEL [id number] A Qxfivedy217.0cm/s MV E Mean Gr.10mmHgE/A Ratio0.9 MV A [id number] Pulmonary Valve PV Peak Eguizxkv912.3cm/sPV Peak Grad.10mmHg Pulmonary Vein S1 Reemegxa47.8cm/sD2 Oikledag81.8cm/s LEFT VENTRICLE The left ventricle is normal size. There is moderate concentric left ventricular hypertrophy. The ech o findings are consistent with left ventricular outflow obstruction. The peak gradient at rest is 41 mmHg, and increases to 65 mmHg with Valsalva. The left ventricular systolic function is normal and th e ejection fraction is within normal range. The ejection fraction is >70%. There is normal LV segment al wall motion. Transmitral Doppler flow pattern is Grade I - abnormal relaxation pattern. RIGHT VENTRICLE The right ventricle is normal size. The right ventricular systolic function is normal. ATRIA The left atrium is moderately dilated. The right atrial size is normal. AORTIC VALVE The aortic valve is mildly sclerotic. The aortic valve appears trileaflet. There is mild aortic regur gitation. There is no significant aortic valvular stenosis. MITRAL VALVE Mitral annular calcification is severe. The mitral valve leaflets are thickened. Maximum mitral valve pressure gradient of 19 mmHg and mean pressure gradient of 10 mmHg are consistent with moderate mitr al stenosis. There is mild mitral regurgitation. TRICUSPID VALVE There is trace tricuspid regurgitation. Unable to estimate pulmonary artery pressure. PULMONIC VALVE There is trace pulmonic valvular regurgitation. GREAT VESSELS The aortic root is normal in size. The ascending aorta is normal in size. The IVC is dilated and rosie apses <50% with inspiration, which is consistent with markedly elevated right atrial pressure. PERICARDIAL EFFUSION There is a trivial circumferential pericardial effusion. Critical Notification Critical Value: No <Conclusion> The left ventricle is normal size. There is moderate concentric left ventricular hypertrophy. The echo findings are consistent with left ventricular outflow obstruction. The peak gradient at rest is 41 mmHg, and increases to 65 mmHg with Valsalva. There is normal LV segmental wall motion. The left ventricular systolic function is normal and the ejection fraction is within normal range. Th e ejection fraction is >70%. Transmitral Doppler flow pattern is Grade I - abnormal relaxation pattern. The left atrium is moderately dilated. The aortic valve is mildly sclerotic. The aortic valve appears trileaflet. Mitral annular calcification is severe. The mitral valve leaflets are thickened. There is mild aortic and mitral regurgitation. There is moderate mitral stenosis with a maximum gradient of 19 mmHg and mean pressure gradient of 10 mmHg. Unable to estimate pulmonary artery pressure. The IVC is dilated and collapses <50% with inspiration, which is consistent with markedly elevated ri ght atrial pressure. There is a trivial circumferential pericardial effusion.
[2017-04-02] MEDS ORDERED: methylPREDNISolone SOD SUCC PF 125 MG/2 ML VIAL. IV SCH ×2 (09:00→14:00)
[2017-04-02] MEDS ORDERED: NICOTINE 21MG PATCH. TD SCH (09:00)
[2017-04-02] MEDS ORDERED: ACETAMINOPHEN 500 MG TABLET PO ONE (09:00)
[2017-04-02] MEDS ORDERED: MORPHINE SULFATE 20 MG/ML CONC SOLUTION. SL PRN (10:00)
[2017-04-02 10:28] LABS: BARBITURATES NEG (NEG); BENZODIAZEPINES NEG (NEG); CANNABINOIDS POS (NEG); COCAINE NEG (NEG); METHADONE NEG (NEG); OPIATES POS (NEG); PHENCYCLIDINE NEG (NEG)
[2017-04-02 10:32] LABS: AMPHETAMINE/METHAMPHETAMINE NEG (NEG)
[2017-04-02] MEDS ORDERED: guaiFENesin DM 600/30MG 1 TAB TAB.ER.12H PO SCH (11:30)
[2017-04-02] MEDS ORDERED: LIDOCAINE (700MG/PATCH) PATCH. TD SCH (11:30)
[2017-04-02] MEDS ORDERED: HYDROmorphone PF 1 MG/ML DISP.SYRIN IV ONE (12:00)
[2017-04-02] MEDS ORDERED: ALBUTEROL SULFATE 2.5 MG/3 ML NEBU. NEB ONE (12:00)
--- NOTE | 2017-04-02 12:28 | PDOC3 ---
Discharge Summary Visit Information Date of Admission: Apr 01, 2017 Date of Discharge: Apr 02, 2017 Final Diagnosis Problems Medical Problems: (1) Atrial fibrillation with RVR Status: Acute (2) Chest pain Status: Acute (3) COPD exacerbation Status: Acute (4) Elevated troponin Status: Acute (5) Renal failure Status: Acute . 1. Atrial fibrillation with rapid ventricular response. 3. Moderate aortic regurgitation. 4. Mild mitral regurgitation. 5. Left ventricular hypertrophy. 6. Tobacco use disorder. 7. Elevated troponin, questionable etiology, may be from the kidneys. 8. Chronic kidney disease, stage 5 9. Weight loss. 10. Moderate protein-calorie malnutrition. 11. Metabolic acidosis, 12 steroid sensitivity 13 restless legs 14. HTN 15 acute hypoxic respiratory failure 16. Acute exacerbation of COPD 17. questionable UTI-contaminated specimen Problems: Brief Hospital Course Allergies Allergies Coded Allergies Type Severity Reaction Last Updated Verified codeine Allergy Intermediate 04/01/17 Yes lorazepam Allergy Intermediate 04/02/17 Yes I S O L A T I O N *CONTACT* Allergy Unknown 04/02/17 Yes Vital Signs Vital Signs Date Time Temp Pulse Resp B/P (MAP) Pulse Ox O2 Delivery O2 Flow Rate FiO2 04/02/17 11:14 97 Nasal Cannula 2.0 04/02/17 10:58 79 38 139/79 (99) 04/02/17 03:00 98.7 Lab Results Laboratory Tests Test 04/01/17 03:10 04/01/17 03:15 04/01/17 09:08 04/01/17 10:35 Blood Gas pH 7.41 (7.35-7.45) Blood Gas PCO2 24 mmHg (35-45) Blood Gas PO2 64 mmHg (80-100) Blood Gas HCO3 15 mmol/L (22-26) Arterial Bld O2 Saturation (Calc) 93 % (92-99) FiO2 36 % White Blood Count 17.7 x10^3/uL (4.0-11.0) Red Blood Count 3.65 x10^6/uL (3.50-5.40) Hemoglobin 10.6 g/dL (12.0-15.5) Hematocrit 31.6 % (36.0-47.0) Mean Corpuscular Volume 87 fL (79-100) Mean Corpuscular Hemoglobin 29 pg (25-35) Mean Corpuscular Hemoglobin Concent 33 g/dL (31-37) Red Cell Distribution Width 14.0 % (11.5-14.5) Platelet Count 380 x10^3/uL (140-400) Neutrophils (%) (Auto) 69 % (31-73) Lymphocytes (%) (Auto) 20 % (24-48) Monocytes (%) (Auto) 7 % (0-9) Eosinophils (%) (Auto) 2 % (0-3) Basophils (%) (Auto) 1 % (0-3) Neutrophils # (Auto) 12.2 x10^3uL (1.8-7.7) Lymphocytes # (Auto) 3.6 x10^3/uL (1.0-4.8) Monocytes # (Auto) 1.2 x10^3/uL (0.0-1.1) Eosinophils # (Auto) 0.4 x10^3/uL (0.0-0.7) Basophils # (Auto) 0.2 x10^3/uL (0.0-0.2) Segmented Neutrophils % 65 % (35-66) Band Neutrophils % 6 % (0-9) Lymphocytes % 19 % (24-48) Monocytes % 8 % (0-10) Eosinophils % 2 % (0-5) Platelet Estimate Adequate (ADEQUATE) Sodium Level 134 mmol/L (136-145) 136 mmol/L (136-145) Potassium Level 4.0 mmol/L (3.5-5.1) 4.2 mmol/L (3.5-5.1) Chloride Level 98 mmol/L (98-107) 103 mmol/L (98-107) Carbon Dioxide Level 19 mmol/L (21-32) 18 mmol/L (21-32) Anion Gap 17 (6-14) 15 (6-14) Blood Urea Nitrogen 58 mg/dL (7-20) 60 mg/dL (7-20) Creatinine 4.1 mg/dL (0.6-1.0) 3.9 mg/dL (0.6-1.0) Estimated GFR (Cockcroft-Gault) 11.0 11.6 BUN/Creatinine Ratio 14 (6-20) 15 (6-20) Glucose Level 102 mg/dL (70-99) 133 mg/dL (70-99) Lactic Acid Level 2.0 mmol/L (0.4-2.0) Calcium Level 9.3 mg/dL (8.5-10.1) 8.2 mg/dL (8.5-10.1) Magnesium Level 2.1 mg/dL (1.8-2.4) Total Bilirubin 0.8 mg/dL (0.2-1.0) 0.5 mg/dL (0.2-1.0) Aspartate Amino Transf (AST/SGOT) 34 U/L (15-37) 23 U/L (15-37) Alanine Aminotransferase (ALT/SGPT) 47 U/L (14-59) 36 U/L (14-59) Alkaline Phosphatase 298 U/L (46-116) 226 U/L (46-116) Creatine Kinase 166 U/L (26-192) Creatine Kinase MB (Mass) 3.9 ng/mL (0.0-3.6) Creatine Kinase MB Relative Index 2.3 % (0-4) Troponin I Quantitative 0.098 ng/mL (0-0.055) 0.239 ng/mL (0-0.055) IY-Cgk-V-Type Natriuretic Peptide 68801 pg/mL (0-124) Total Protein 7.8 g/dL (6.4-8.2) 6.3 g/dL (6.4-8.2) Albumin 3.1 g/dL (3.4-5.0) 2.4 g/dL (3.4-5.0) Albumin/Globulin Ratio 0.7 (1.0-1.7) 0.6 (1.0-1.7) Lipase 105 U/L (73-393) Thyroid Stimulating Hormone (TSH) 1.660 uIU/mL (0.358-3.740) Nasal Screen MRSA (PCR) Positive (Negative) Test 04/01/17 14:50 04/01/17 16:30 04/02/17 05:53 Troponin I Quantitative 0.204 ng/mL (0-0.055) 0.125 ng/mL (0-0.055) Urine Collection Type Unknown Urine Color Yellow Urine Clarity Hazy Urine pH 7.0 Urine Specific [place] 1.020 Urine Protein >100 mg/dl (NEG-TRACE) Urine Glucose (UA) Neg mg/dL (NEG) Urine Ketones (Stick) Neg mg/dL (NEG) Urine Blood Small (NEG) Urine Nitrite Neg (NEG) Urine Bilirubin Neg (NEG) Urine Urobilinogen Dipstick 0.2 mg/dL (0.2 mg/dL) Urine Leukocyte Esterase Neg (NEG) Urine RBC 6-10 /HPF (0-2) Urine WBC 5-10 /HPF (0-4) Urine Squamous Epithelial Cells Many /LPF Urine Bacteria Few /HPF (0-FEW) Urine Opiates Screen Pos (NEG) Urine Methadone Screen Neg (NEG) Urine Barbiturates Neg (NEG) Urine Phencyclidine Screen Neg (NEG) Urine Amphetamine/Methamphetamine Neg (NEG) Urine Benzodiazepines Screen Neg (NEG) Urine Cocaine Screen Neg (NEG) Urine Cannabinoids Screen Pos (NEG) Urine Ethyl Alcohol Neg (NEG) White Blood Count 15.5 x10^3/uL (4.0-11.0) Red Blood Count 2.84 x10^6/uL (3.50-5.40) Hemoglobin 8.3 g/dL (12.0-15.5) Hematocrit 24.4 % (36.0-47.0) Mean Corpuscular Volume 86 fL (79-100) Mean Corpuscular Hemoglobin 29 pg (25-35) Mean Corpuscular Hemoglobin Concent 34 g/dL (31-37) Red Cell Distribution Width 13.8 % (11.5-14.5) Platelet Count 244 x10^3/uL (140-400) Sodium Level 133 mmol/L (136-145) Potassium Level 4.0 mmol/L (3.5-5.1) Chloride Level 100 mmol/L (98-107) Carbon Dioxide Level 18 mmol/L (21-32) Anion Gap 15 (6-14) Blood Urea Nitrogen 65 mg/dL (7-20) Creatinine 3.9 mg/dL (0.6-1.0) Estimated GFR (Cockcroft-Gault) 11.6 BUN/Creatinine Ratio 17 (6-20) Glucose Level 128 mg/dL (70-99) Calcium Level 8.4 mg/dL (8.5-10.1) Magnesium Level 1.8 mg/dL (1.8-2.4) Total Bilirubin 0.3 mg/dL (0.2-1.0) Aspartate Amino Transf (AST/SGOT) 23 U/L (15-37) Alanine Aminotransferase (ALT/SGPT) 32 U/L (14-59) Alkaline Phosphatase 193 U/L (46-116) Creatine Kinase 143 U/L (26-192) Total Protein 6.4 g/dL (6.4-8.2) Albumin 2.6 g/dL (3.4-5.0) Albumin/Globulin Ratio 0.7 (1.0-1.7) Brief Hospital Course Ms. Silverio is a 61 old female who presented to the ER with complaints of chest pain and shortness of breath. She was found to be in A Fib with RVR and was admitted on a Cardiezem drip. She converted. She was also found to be in renal failure in the face of chronic kidney disease and gentle hydration did not improve her renal studies. Her GFR is only 11.6. She had elevated troponis and an elevated BNP but it is felt that this was due to the kidney disease. Discharge Information Condition at Discharge: Stable Disposition/Orders: D/C to Another Facility Dischare Medications Current Medications Aspirin (Children'S Aspirin) 324 mg 1X ONCE PO Last administered on 04/01/17 04:00; Start 04/01/17 at 04:00; Stop 04/01/17 at 04:01; Status DC Lorazepam (Ativan) 1 mg 1X ONCE IV Last administered on 04/01/17 03:47; Start 04/01/17 at 04:00; Stop 04/01/17 at 04:01; Status DC Hydromorphone HCl (Dilaudid) 1 mg PRN Q15MIN PRN IV/SQ PAIN GREATER THAN 3/10; Start 04/01/17 at 03:15; Stop 04/01/17 at 07:46; Status DC Sodium Chloride 1,000 ml @ 1,000 mls/hr Q1H IV Last administered on 04/01/17 03:47; Start 04/01/17 at 04:00; Stop 04/01/17 at 04:59; Status DC Sodium Chloride (Normal Saline Flush) 10 ml QSHIFT PRN IV AFTER MEDS AND BLOOD DRAWS; Start 04/01/17 at 03:15 Albuterol/ Ipratropium (Duoneb) 3 ml 1X ONCE NEB Last administered on 03:46; Start 04/01/17 at 04:00; Stop 04/01/17 at 04:01; Status DC Methylprednisolone Sodium Succinate (SOLU-Medrol 125MG VIAL) 125 mg 1X ONCE IV Last administered on 04/01/17 03:34; Start 04/01/17 at 03:15; Stop 04/01/17 at 03:39; Status DC Diltiazem HCl (Cardizem) 20 mg 1X ONCE IVP Last administered on 04/01/17 03: 35; Start 04/01/17 at 03:30; Stop 04/01/17 at 03:39; Status DC Lorazepam (Ativan) 2 mg STK-MED ONCE .ROUTE ; Start 04/01/17 at 03:37; Stop at 03:38; Status DC Ceftriaxone Sodium 1 gm/ Sodium Chloride 50 ml @ 100 mls/hr 1X ONCE IV Last administered on 04/01/17 04:24; Start 04/01/17 at 04:30; Stop 04/01/17 at 04:59 ; Status DC Albuterol/ Ipratropium (Duoneb) 3 ml 1X ONCE NEB Last administered on 04:09; Start 04/01/17 at 04:00; Stop 04/01/17 at 04:01; Status DC Albuterol/ Ipratropium (Duoneb) 3 ml 1X ONCE NEB Last administered on 06:30; Start 04/01/17 at 04:30; Stop 04/01/17 at 04:31; Status DC Ondansetron HCl (Zofran) 4 mg PRN Q4HRS PRN IV NAUSEA/VOMITING; Start 04/01/17 at 04:00; Stop 04/02/17 at 03:59; Status DC Sodium Chloride 1,000 ml @ 100 mls/hr Q10H IV Last administered on 04/01/17 04:45; Start 04/01/17 at 03:54; Stop 04/01/17 at 10:33; Status DC Acetaminophen (Tylenol) 650 mg PRN Q4HRS PRN PO FEVER; Start 04/01/17 at 04:00 ; Stop 04/02/17 at 03:59; Status DC Nitroglycerin (Nitrostat) 0.4 mg PRN Q5MIN PRN SL CHEST PAIN; Start 04/01/17 at 04:00; Stop 04/02/17 at 03:59; Status DC Hydromorphone HCl (Dilaudid) 1 mg PRN Q2HR PRN IV SEVERE PAIN Last administered on 04/01/17 22:08; Start 04/01/17 at 04:00; Stop 04/02/17 at 03:59 ; Status DC Albuterol/ Ipratropium (Duoneb) 3 ml RTQID NEB Last administered on 04/01/17 10:59; Start 04/01/17 at 08:00; Stop 04/01/17 at 11:34; Status DC Diltiazem HCl (Cardizem) 25 mg 1X ONCE IVP Last administered on 04/01/17 04: 56; Start 04/01/17 at 04:30; Stop 04/01/17 at 04:31; Status DC Diltiazem HCl 125 mg/Dextrose 125 ml @ 0 mls/hr 1X ONCE IV Last administered on 04/01/17 04:55; Start 04/01/17 at 04:15; Stop 04/01/17 at 09:45; Status DC Sodium Chloride 50 ml @ As Directed STK-MED ONCE .ROUTE ; Start 04/01/17 at 04: 18; Stop 04/01/17 at 04:19; Status DC Ceftriaxone Sodium (Rocephin) 1 gm STK-MED ONCE IV ; Start 04/01/17 at 04:18; Stop 04/01/17 at 04:19; Status DC Digoxin (Lanoxin) 500 mcg 1X ONCE IV Last administered on 04/01/17 04:34; Start 04/01/17 at 04:45; Stop 04/01/17 at 04:46; Status DC Dextrose 100 ml @ As Directed STK-MED ONCE IV ; Start 04/01/17 at 04:46; Stop 04/01/17 at 04:47; Status DC Diltiazem HCl (Cardizem) 125 mg STK-MED ONCE IV ; Start 04/01/17 at 04:46; Stop 04/01/17 at 09:45; Status DC Prednisone (Prednisone) 40 mg DAILY16 PO Last administered on 04/01/17 16:01; Start 04/01/17 at 16:00; Stop 04/02/17 at 08:59; Status DC Amlodipine Besylate (Norvasc) 10 mg DAILY PO ; Start 04/01/17 at 09:00; Stop at 09:45; Status DC Diltiazem HCl (Cardizem 24hr Cd) 240 mg DAILY PO Last administered on 10:06; Start 04/01/17 at 10:00; Stop 04/01/17 at 11:33; Status DC Lactated Ringer's 1,000 ml @ 75 mls/hr [id number] IV Last administered on 03:16; Start 04/01/17 at 11:00 Diltiazem HCl (Cardizem 24hr Cd) 240 mg DAILY PO Last administered on 07:41; Start 04/02/17 at 09:00 Albuterol/ Ipratropium (Duoneb) 3 ml RTQID NEB Last administered on 04/02/17 09:55; Start 04/01/17 at 12:00 Aspirin (Aspirin Enteric Coated) 81 mg [id number] PO Last administered on 07:42; Start 04/01/17 at 13:00 Hydralazine HCl (Apresoline) 25 mg TID PO Last administered on 04/01/17 13:09 ; Start 04/01/17 at 14:00; Stop 04/01/17 at 15:52; Status DC Doxycycline Hyclate (Vibra-Tab) 100 mg BID PO Last administered on 04/02/17 07 :41; Start 04/01/17 at 21:00 Albuterol/ Ipratropium (Duoneb) 3 ml PRN Q2HR PRN NEB SHORTNESS OF BREATH; Start 04/01/17 at 15:30 Hydralazine HCl (Apresoline) 50 mg TID PO Last administered on 04/02/17 07:42 ; Start 04/01/17 at 21:00 Lorazepam (Ativan) 0.5 mg PRN Q4HRS PRN IV ANXIETY / AGITATION Last administered on 04/01/17 16:03; Start 04/01/17 at 16:00; Stop 04/01/17 at 17:59 ; Status DC Hydralazine HCl (Apresoline) 25 mg 1X ONCE PO Last administered on 04/01/17 16:04; Start 04/01/17 at 16:30; Stop 04/01/17 at 16:31; Status DC Lorazepam (Ativan) 1 mg PRN Q4HRS PRN IV ANXIETY / AGITATION Last administered on 04/02/17 03:14; Start 04/01/17 at 18:00; Stop 04/02/17 at 11:39; Status DC Nicotine (Nicoderm Cq 21mg) 1 patch DAILY TD Last administered on 04/02/17 08: 46; Start 04/02/17 at 09:00 Acetaminophen (Tylenol) 1,000 mg 1X ONCE PO Last administered on 04/02/17 08: 46; Start 04/02/17 at 09:00; Stop 04/02/17 at 09:01; Status DC Acetaminophen (Tylenol) 650 mg PRN Q6HRS PRN PO PAIN / TEMP; Start 04/02/17 at 08:30 Acetaminophen (Tylenol) 500 mg PRN Q6HRS PRN PO PAIN / TEMP; Start 04/02/17 at 08:30 Methylprednisolone Sodium Succinate (SOLU-Medrol 125MG VIAL) 125 mg BID IV Last administered on 04/02/17 09:10; Start 04/02/17 at 09:00; Stop 04/02/17 at 10:22; Status DC Morphine Sulfate (Roxanol Conc) 10 mg PRN Q3HRS PRN SL PAIN Last administered on 04/02/17 10:13; Start 04/02/17 at 10:00 Ceftriaxone Sodium 1 gm/ Sodium Chloride 50 ml @ 100 mls/hr Q24H IV Last administered on 04/02/17 11:48; Start 04/02/17 at 11:00 Methylprednisolone Sodium Succinate (SOLU-Medrol 125MG VIAL) 125 mg TID IV ; Start 04/02/17 at 14:00 Lidocaine (Lidoderm) 1 patch DAILY TD Last administered on 04/02/17 11:21; Start 04/02/17 at 11:30 Guaifenesin (MUCINEX ER with DM) 1 tab BID PO ; Start 04/02/17 at 11:30 Albuterol Sulfate (Ventolin) 1.25 mg 1X ONCE NEB ; Start 04/02/17 at 12:00; Stop 04/02/17 at 12:01; Status DC Hydromorphone HCl (Dilaudid) 1 mg 1X ONCE IV ; Start 04/02/17 at 12:00; Stop at 12:01; Status DC Active Scripts Active Reported Lisinopril-Hctz 20-25 Mg Tab (Lisinopril/Hydrochlorothiazide) 1 Each Tablet 1 Tab PO DAILY Norvasc (Amlodipine Besylate) 10 Mg Tablet 1 Tab PO DAILY KATIE KU DO Apr 02, 2017 12:28
--- NOTE | 2017-04-02 13:29 | PDOC ---
PROGRESS NOTES Diagnosis Problem Problems Medical Problems: (1) Atrial fibrillation with RVR Status: Acute (2) Chest pain Status: Acute (3) COPD exacerbation Status: Acute (4) Elevated troponin Status: Acute (5) Renal failure Status: Acute Assessment Problems Medical Problems: (1) Atrial fibrillation with RVR Status: Acute (2) Chest pain Status: Acute (3) COPD exacerbation Status: Acute (4) Elevated troponin Status: Acute (5) Renal failure Status: Acute Atrial fibrillation, paroxysmal. She remains in sinus rhythm. We will continue Cardizem for rate control in the event she has recurrent atrial fibrillation. We will continue oral anticoagulation for stroke prevention. Since the atrial fibrillation may be related to the mitral stenosis, we may want to consider placing her on warfarin. However, at the present time she does not have insurance. This would make it very difficult for her to get the medication and proper follow-up testing. For the time being we could supply her with samples of direct acting oral anticoagulants from our office. Of course, this would be off-label use but we may have no other good option. Elevated troponin. I suspect this is related to her renal disease and does not represent an acute myocardial infarction. Chest pain. She still has some vague chest pain but no ischemic changes on her electrocardiogram. Her ejection fraction is normal. I suspect this is musculoskeletal chest pain due to the coughing that she was having from chronic obstructive pulmonary disease prior to admission. Mitral stenosis, moderate. This is not to the degree that would require surgery. However, this will certainly need to be followed longitudinally with yearly echocardiograms. Once she has insurance in place, I would suggest changing her over to warfarin for stroke prevention from the paroxysmal atrial fibrillation. Essential hypertension. Her blood pressures are elevated at times. If this continues, we may need to adjust her medication. Problems: Subjective We are seeing her for chest pain and elevated troponin. S: She still has some vague chest pain. This is more likely to occur after she has been coughing or taking deep breaths. She continues to have severe dyspnea. She denies palpitations. Once the atrial fibrillation stopped, the palpitations improved. She denies syncope or lower extremity edema. Objective Vital Signs Date Time Temp Pulse Resp B/P (MAP) Pulse Ox O2 Delivery O2 Flow Rate FiO2 04/02/17 12:59 77 23 138/57 (84) 99 Nasal Cannula 2.0 04/02/17 03:00 98.7 Intake and Output 04/02/17 07:00 Intake Total 1910 ml Output Total 800 ml Balance 1110 ml Intake Oral 910 ml IV Total 1000 ml Output Urine Total 800 ml # Voids 2 Abdomen: Normal bowel sounds, Soft, No tenderness Heart: Regular rate, Normal S1, Normal S2, Other ( 2/6 systolic ejection murmur.) Extremities: No clubbing, No cyanosis, No edema, Normal pulses General: Alert, Oriented X3, Cooperative, mild distress HEENT: Atraumatic, EOMI, Mucous membr. moist/pink Lungs: Normal air movement (Diffuse inspiratory wheezing.) Neck: No JVD, +2 carotid pulse wo bruit Neuro: Normal speech, Strength at 5/5 X4 ext, Normal tone, Cranial nerves 3-12 NL Psych/Mental Status: Other ( She appears anxious.) Skin: No rashes, No breakdown, No significant lesion Review of Relevant I have reviewed the following items carmelina (where applicable) has been applied. Labs Laboratory Tests Test 04/01/17 03:10 04/01/17 03:15 04/01/17 09:08 04/01/17 10:35 Blood Gas pH 7.41 (7.35-7.45) Blood Gas PCO2 24 mmHg (35-45) Blood Gas PO2 64 mmHg (80-100) Blood Gas HCO3 15 mmol/L (22-26) Arterial Bld O2 Saturation (Calc) 93 % (92-99) FiO2 36 % White Blood Count 17.7 x10^3/uL (4.0-11.0) Red Blood Count 3.65 x10^6/uL (3.50-5.40) Hemoglobin 10.6 g/dL (12.0-15.5) Hematocrit 31.6 % (36.0-47.0) Mean Corpuscular Volume 87 fL (79-100) Mean Corpuscular Hemoglobin 29 pg (25-35) Mean Corpuscular Hemoglobin Concent 33 g/dL (31-37) Red Cell Distribution Width 14.0 % (11.5-14.5) Platelet Count 380 x10^3/uL (140-400) Neutrophils (%) (Auto) 69 % (31-73) Lymphocytes (%) (Auto) 20 % (24-48) Monocytes (%) (Auto) 7 % (0-9) Eosinophils (%) (Auto) 2 % (0-3) Basophils (%) (Auto) 1 % (0-3) Neutrophils # (Auto) 12.2 x10^3uL (1.8-7.7) Lymphocytes # (Auto) 3.6 x10^3/uL (1.0-4.8) Monocytes # (Auto) 1.2 x10^3/uL (0.0-1.1) Eosinophils # (Auto) 0.4 x10^3/uL (0.0-0.7) Basophils # (Auto) 0.2 x10^3/uL (0.0-0.2) Segmented Neutrophils % 65 % (35-66) Band Neutrophils % 6 % (0-9) Lymphocytes % 19 % (24-48) Monocytes % 8 % (0-10) Eosinophils % 2 % (0-5) Platelet Estimate Adequate (ADEQUATE) Sodium Level 134 mmol/L (136-145) 136 mmol/L (136-145) Potassium Level 4.0 mmol/L (3.5-5.1) 4.2 mmol/L (3.5-5.1) Chloride Level 98 mmol/L (98-107) 103 mmol/L (98-107) Carbon Dioxide Level 19 mmol/L (21-32) 18 mmol/L (21-32) Anion Gap 17 (6-14) 15 (6-14) Blood Urea Nitrogen 58 mg/dL (7-20) 60 mg/dL (7-20) Creatinine 4.1 mg/dL (0.6-1.0) 3.9 mg/dL (0.6-1.0) Estimated GFR (Cockcroft-Gault) 11.0 11.6 BUN/Creatinine Ratio 14 (6-20) 15 (6-20) Glucose Level 102 mg/dL (70-99) 133 mg/dL (70-99) Lactic Acid Level 2.0 mmol/L (0.4-2.0) Calcium Level 9.3 mg/dL (8.5-10.1) 8.2 mg/dL (8.5-10.1) Magnesium Level 2.1 mg/dL (1.8-2.4) Total Bilirubin 0.8 mg/dL (0.2-1.0) 0.5 mg/dL (0.2-1.0) Aspartate Amino Transf (AST/SGOT) 34 U/L (15-37) 23 U/L (15-37) Alanine Aminotransferase (ALT/SGPT) 47 U/L (14-59) 36 U/L (14-59) Alkaline Phosphatase 298 U/L (46-116) 226 U/L (46-116) Creatine Kinase 166 U/L (26-192) Creatine Kinase MB (Mass) 3.9 ng/mL (0.0-3.6) Creatine Kinase MB Relative Index 2.3 % (0-4) Troponin I Quantitative 0.098 ng/mL (0-0.055) 0.239 ng/mL (0-0.055) CA-Bko-X-Type Natriuretic Peptide 42100 pg/mL (0-124) Total Protein 7.8 g/dL (6.4-8.2) 6.3 g/dL (6.4-8.2) Albumin 3.1 g/dL (3.4-5.0) 2.4 g/dL (3.4-5.0) Albumin/Globulin Ratio 0.7 (1.0-1.7) 0.6 (1.0-1.7) Lipase 105 U/L (73-393) Thyroid Stimulating Hormone (TSH) 1.660 uIU/mL (0.358-3.740) Nasal Screen MRSA (PCR) Positive (Negative) Test 04/01/17 14:50 04/01/17 16:30 04/02/17 05:53 Troponin I Quantitative 0.204 ng/mL (0-0.055) 0.125 ng/mL (0-0.055) Urine Collection Type Unknown Urine Color Yellow Urine Clarity Hazy Urine pH 7.0 Urine Specific [place] 1.020 Urine Protein >100 mg/dl (NEG-TRACE) Urine Glucose (UA) Neg mg/dL (NEG) Urine Ketones (Stick) Neg mg/dL (NEG) Urine Blood Small (NEG) Urine Nitrite Neg (NEG) Urine Bilirubin Neg (NEG) Urine Urobilinogen Dipstick 0.2 mg/dL (0.2 mg/dL) Urine Leukocyte Esterase Neg (NEG) Urine RBC 6-10 /HPF (0-2) Urine WBC 5-10 /HPF (0-4) Urine Squamous Epithelial Cells Many /LPF Urine Bacteria Few /HPF (0-FEW) Urine Opiates Screen Pos (NEG) Urine Methadone Screen Neg (NEG) Urine Barbiturates Neg (NEG) Urine Phencyclidine Screen Neg (NEG) Urine Amphetamine/Methamphetamine Neg (NEG) Urine Benzodiazepines Screen Neg (NEG) Urine Cocaine Screen Neg (NEG) Urine Cannabinoids Screen Pos (NEG) Urine Ethyl Alcohol Neg (NEG) White Blood Count 15.5 x10^3/uL (4.0-11.0) Red Blood Count 2.84 x10^6/uL (3.50-5.40) Hemoglobin 8.3 g/dL (12.0-15.5) Hematocrit 24.4 % (36.0-47.0) Mean Corpuscular Volume 86 fL (79-100) Mean Corpuscular Hemoglobin 29 pg (25-35) Mean Corpuscular Hemoglobin Concent 34 g/dL (31-37) Red Cell Distribution Width 13.8 % (11.5-14.5) Platelet Count 244 x10^3/uL (140-400) Sodium Level 133 mmol/L (136-145) Potassium Level 4.0 mmol/L (3.5-5.1) Chloride Level 100 mmol/L (98-107) Carbon Dioxide Level 18 mmol/L (21-32) Anion Gap 15 (6-14) Blood Urea Nitrogen 65 mg/dL (7-20) Creatinine 3.9 mg/dL (0.6-1.0) Estimated GFR (Cockcroft-Gault) 11.6 BUN/Creatinine Ratio 17 (6-20) Glucose Level 128 mg/dL (70-99) Calcium Level 8.4 mg/dL (8.5-10.1) Magnesium Level 1.8 mg/dL (1.8-2.4) Total Bilirubin 0.3 mg/dL (0.2-1.0) Aspartate Amino Transf (AST/SGOT) 23 U/L (15-37) Alanine Aminotransferase (ALT/SGPT) 32 U/L (14-59) Alkaline Phosphatase 193 U/L (46-116) Creatine Kinase 143 U/L (26-192) Total Protein 6.4 g/dL (6.4-8.2) Albumin 2.6 g/dL (3.4-5.0) Albumin/Globulin Ratio 0.7 (1.0-1.7) Microbiology 04/01/17 Blood Culture - Preliminary, Resulted NO GROWTH AFTER 1 DAY Medications Current Medications Aspirin (Children'S Aspirin) 324 mg 1X ONCE PO Last administered on 04/01/17 04:00; Start 04/01/17 at 04:00; Stop 04/01/17 at 04:01; Status DC Lorazepam (Ativan) 1 mg 1X ONCE IV Last administered on 04/01/17 03:47; Start 04/01/17 at 04:00; Stop 04/01/17 at 04:01; Status DC Hydromorphone HCl (Dilaudid) 1 mg PRN Q15MIN PRN IV/SQ PAIN GREATER THAN 3/10; Start 04/01/17 at 03:15; Stop 04/01/17 at 07:46; Status DC Sodium Chloride 1,000 ml @ 1,000 mls/hr Q1H IV Last administered on 04/01/17 03:47; Start 04/01/17 at 04:00; Stop 04/01/17 at 04:59; Status DC Sodium Chloride (Normal Saline Flush) 10 ml QSHIFT PRN IV AFTER MEDS AND BLOOD DRAWS; Start 04/01/17 at 03:15 Albuterol/ Ipratropium (Duoneb) 3 ml 1X ONCE NEB Last administered on 03:46; Start 04/01/17 at 04:00; Stop 04/01/17 at 04:01; Status DC Methylprednisolone Sodium Succinate (SOLU-Medrol 125MG VIAL) 125 mg 1X ONCE IV Last administered on 04/01/17 03:34; Start 04/01/17 at 03:15; Stop 04/01/17 at 03:39; Status DC Diltiazem HCl (Cardizem) 20 mg 1X ONCE IVP Last administered on 04/01/17 03: 35; Start 04/01/17 at 03:30; Stop 04/01/17 at 03:39; Status DC Lorazepam (Ativan) 2 mg STK-MED ONCE .ROUTE ; Start 04/01/17 at 03:37; Stop at 03:38; Status DC Ceftriaxone Sodium 1 gm/ Sodium Chloride 50 ml @ 100 mls/hr 1X ONCE IV Last administered on 04/01/17 04:24; Start 04/01/17 at 04:30; Stop 04/01/17 at 04:59 ; Status DC Albuterol/ Ipratropium (Duoneb) 3 ml 1X ONCE NEB Last administered on 04:09; Start 04/01/17 at 04:00; Stop 04/01/17 at 04:01; Status DC Albuterol/ Ipratropium (Duoneb) 3 ml 1X ONCE NEB Last administered on 06:30; Start 04/01/17 at 04:30; Stop 04/01/17 at 04:31; Status DC Ondansetron HCl (Zofran) 4 mg PRN Q4HRS PRN IV NAUSEA/VOMITING; Start 04/01/17 at 04:00; Stop 04/02/17 at 03:59; Status DC Sodium Chloride 1,000 ml @ 100 mls/hr Q10H IV Last administered on 04/01/17 04:45; Start 04/01/17 at 03:54; Stop 04/01/17 at 10:33; Status DC Acetaminophen (Tylenol) 650 mg PRN Q4HRS PRN PO FEVER; Start 04/01/17 at 04:00 ; Stop 04/02/17 at 03:59; Status DC Nitroglycerin (Nitrostat) 0.4 mg PRN Q5MIN PRN SL CHEST PAIN; Start 04/01/17 at 04:00; Stop 04/02/17 at 03:59; Status DC Hydromorphone HCl (Dilaudid) 1 mg PRN Q2HR PRN IV SEVERE PAIN Last administered on 04/01/17 22:08; Start 04/01/17 at 04:00; Stop 04/02/17 at 03:59 ; Status DC Albuterol/ Ipratropium (Duoneb) 3 ml RTQID NEB Last administered on 04/01/17 10:59; Start 04/01/17 at 08:00; Stop 04/01/17 at 11:34; Status DC Diltiazem HCl (Cardizem) 25 mg 1X ONCE IVP Last administered on 04/01/17 04: 56; Start 04/01/17 at 04:30; Stop 04/01/17 at 04:31; Status DC Diltiazem HCl 125 mg/Dextrose 125 ml @ 0 mls/hr 1X ONCE IV Last administered on 04/01/17 04:55; Start 04/01/17 at 04:15; Stop 04/01/17 at 09:45; Status DC Sodium Chloride 50 ml @ As Directed STK-MED ONCE .ROUTE ; Start 04/01/17 at 04: 18; Stop 04/01/17 at 04:19; Status DC Ceftriaxone Sodium (Rocephin) 1 gm STK-MED ONCE IV ; Start 04/01/17 at 04:18; Stop 04/01/17 at 04:19; Status DC Digoxin (Lanoxin) 500 mcg 1X ONCE IV Last administered on 04/01/17 04:34; Start 04/01/17 at 04:45; Stop 04/01/17 at 04:46; Status DC Dextrose 100 ml @ As Directed STK-MED ONCE IV ; Start 04/01/17 at 04:46; Stop 04/01/17 at 04:47; Status DC Diltiazem HCl (Cardizem) 125 mg STK-MED ONCE IV ; Start 04/01/17 at 04:46; Stop 04/01/17 at 09:45; Status DC Prednisone (Prednisone) 40 mg DAILY16 PO Last administered on 04/01/17 16:01; Start 04/01/17 at 16:00; Stop 04/02/17 at 08:59; Status DC Amlodipine Besylate (Norvasc) 10 mg DAILY PO ; Start 04/01/17 at 09:00; Stop at 09:45; Status DC Diltiazem HCl (Cardizem 24hr Cd) 240 mg DAILY PO Last administered on 10:06; Start 04/01/17 at 10:00; Stop 04/01/17 at 11:33; Status DC Lactated Ringer's 1,000 ml @ 75 mls/hr [id number] IV Last administered on 03:16; Start 04/01/17 at 11:00 Diltiazem HCl (Cardizem 24hr Cd) 240 mg DAILY PO Last administered on 07:41; Start 04/02/17 at 09:00 Albuterol/ Ipratropium (Duoneb) 3 ml RTQID NEB Last administered on 04/02/17 09:55; Start 04/01/17 at 12:00 Aspirin (Aspirin Enteric Coated) 81 mg [id number] PO Last administered on 07:42; Start 04/01/17 at 13:00 Hydralazine HCl (Apresoline) 25 mg TID PO Last administered on 04/01/17 13:09 ; Start 04/01/17 at 14:00; Stop 04/01/17 at 15:52; Status DC Doxycycline Hyclate (Vibra-Tab) 100 mg BID PO Last administered on 04/02/17 07 :41; Start 04/01/17 at 21:00 Albuterol/ Ipratropium (Duoneb) 3 ml PRN Q2HR PRN NEB SHORTNESS OF BREATH; Start 04/01/17 at 15:30 Hydralazine HCl (Apresoline) 50 mg TID PO Last administered on 04/02/17 07:42 ; Start 04/01/17 at 21:00 Lorazepam (Ativan) 0.5 mg PRN Q4HRS PRN IV ANXIETY / AGITATION Last administered on 04/01/17 16:03; Start 04/01/17 at 16:00; Stop 04/01/17 at 17:59 ; Status DC Hydralazine HCl (Apresoline) 25 mg 1X ONCE PO Last administered on 04/01/17 16:04; Start 04/01/17 at 16:30; Stop 04/01/17 at 16:31; Status DC Lorazepam (Ativan) 1 mg PRN Q4HRS PRN IV ANXIETY / AGITATION Last administered on 04/02/17 03:14; Start 04/01/17 at 18:00; Stop 04/02/17 at 11:39; Status DC Nicotine (Nicoderm Cq 21mg) 1 patch DAILY TD Last administered on 04/02/17 08: 46; Start 04/02/17 at 09:00 Acetaminophen (Tylenol) 1,000 mg 1X ONCE PO Last administered on 04/02/17 08: 46; Start 04/02/17 at 09:00; Stop 04/02/17 at 09:01; Status DC Acetaminophen (Tylenol) 650 mg PRN Q6HRS PRN PO PAIN / TEMP; Start 04/02/17 at 08:30 Acetaminophen (Tylenol) 500 mg PRN Q6HRS PRN PO PAIN / TEMP; Start 04/02/17 at 08:30 Methylprednisolone Sodium Succinate (SOLU-Medrol 125MG VIAL) 125 mg BID IV Last administered on 04/02/17 09:10; Start 04/02/17 at 09:00; Stop 04/02/17 at 10:22; Status DC Morphine Sulfate (Roxanol Conc) 10 mg PRN Q3HRS PRN SL PAIN Last administered on 04/02/17 10:13; Start 04/02/17 at 10:00 Ceftriaxone Sodium 1 gm/ Sodium Chloride 50 ml @ 100 mls/hr Q24H IV Last administered on 04/02/17 11:48; Start 04/02/17 at 11:00 Methylprednisolone Sodium Succinate (SOLU-Medrol 125MG VIAL) 125 mg TID IV ; Start 04/02/17 at 14:00 Lidocaine (Lidoderm) 1 patch DAILY TD Last administered on 04/02/17 11:21; Start 04/02/17 at 11:30 Guaifenesin (MUCINEX ER with DM) 1 tab BID PO ; Start 04/02/17 at 11:30 Albuterol Sulfate (Ventolin) 1.25 mg 1X ONCE NEB ; Start 04/02/17 at 12:00; Stop 04/02/17 at 12:01; Status DC Hydromorphone HCl (Dilaudid) 1 mg 1X ONCE IV ; Start 04/02/17 at 12:00; Stop at 12:01; Status DC Active Scripts Active Reported Lisinopril-Hctz 20-25 Mg Tab (Lisinopril/Hydrochlorothiazide) 1 Each Tablet 1 Tab PO DAILY Norvasc (Amlodipine Besylate) 10 Mg Tablet 1 Tab PO DAILY Vitals/I & O Vital Sign - Last 24 Hours 04/01/17 04/01/17 04/01/17 04/01/17 13:51 14:58 15:07 15:09 Pulse 83 84 Resp 28 25 B/P (MAP) 172/76 (108) 172/76 (108) Pulse Ox 99 99 99 O2 Delivery Nasal Cannula Nasal Cannula Nasal Cannula Nasal Cannula O2 Flow Rate 2.0 2.0 2.0 2.0 04/01/17 04/01/17 04/01/17 8/22/17 15:58 16:04 17:38 19:00 Pulse 86 84 85 80 Resp 24 B/P (MAP) 174/83 (113) 172/76 162/74 (103) 160/75 (103) Pulse Ox 98 99 98 O2 Delivery Nasal Cannula Nasal Cannula Nasal Cannula O2 Flow Rate 2.0 2.0 2.0 04/01/17 04/01/17 04/01/17 04/01/17 19:35 20:00 20:45 21:00 Pulse 80 86 78 Resp 24 24 B/P (MAP) 138/62 (87) 138/82 141/59 (86) Pulse Ox 99 98 O2 Delivery Nasal Cannula Nasal Cannula Nasal Cannula O2 Flow Rate 2.0 2.0 2.0 04/01/17 04/01/17 04/01/17 04/01/17 21:07 22:00 22:08 23:35 Pulse 80 Resp 24 B/P (MAP) 158/75 (102) Pulse Ox 99 99 O2 Delivery Nasal Cannula Nasal Cannula Nasal Cannula Nasal Cannula O2 Flow Rate 2.0 2.0 2.0 04/02/17 04/02/17 04/02/17 04/02/17 01:00 02:00 03:00 03:40 Temp 98.7 Pulse 79 80 78 Resp 20 24 B/P (MAP) 171/72 (105) 173/73 (106) 157/69 (98) Pulse Ox 97 97 96 O2 Delivery Nasal Cannula Nasal Cannula Nasal Cannula Nasal Cannula O2 Flow Rate 2.0 2.0 2.0 2.0 04/02/17 04/02/17 04/02/17 04/02/17 04:00 05:00 05:03 06:00 Pulse 78 78 72 Resp 20 20 20 B/P (MAP) 165/77 (106) 156/74 (101) 148/65 (92) Pulse Ox 96 96 97 O2 Delivery Nasal Cannula Nasal Cannula Nasal Cannula Nasal Cannula O2 Flow Rate 2.0 2.0 2.0 2.0 04/02/17 04/02/17 04/02/17 04/02/17 07:41 07:42 07:58 08:30 Pulse 72 72 69 Resp 20 B/P (MAP) 148/65 148/65 155/68 (97) Pulse Ox 98 O2 Delivery Nasal Cannula Nasal Cannula O2 Flow Rate 2.0 2.0 04/02/17 04/02/17 04/02/17 04/02/17 08:58 09:55 09:58 10:13 Pulse 69 76 Resp 20 38 B/P (MAP) 133/61 (85) 141/89 (106) Pulse Ox 96 97 98 97 O2 Delivery Nasal Cannula Nasal Cannula Nasal Cannula Nasal Cannula O2 Flow Rate 2.0 2.0 2.0 2.0 04/02/17 04/02/17 04/02/17 04/02/17 10:58 11:14 12:09 12:10 Pulse 79 72 Resp 38 24 B/P (MAP) 139/79 (99) Pulse Ox 98 97 99 O2 Delivery Nasal Cannula Nasal Cannula Nasal Cannula Nasal Cannula O2 Flow Rate 2.0 2.0 2.0 2.0 04/02/17 12:59 Pulse 77 Resp 23 B/P (MAP) 138/57 (84) Pulse Ox 99 O2 Delivery Nasal Cannula O2 Flow Rate 2.0 Intake and Output 04/01/17 04/01/17 04/02/17 15:00 23:00 07:00 Intake Total 790 ml 1120 ml Output Total 350 ml 250 ml 200 ml Balance 440 ml -250 ml 920 ml MOHAMUD NAGEL Jr, MD Apr 02, 2017 13:29
--- NOTE | 2017-04-02 14:21 | RAD ---
Portable chest, 04/02/2017: History: Shortness of breath Comparison is made to a study from 04/01/2017. The heart is enlarged. There is calcific plaquing of the aorta. The pulmonary vascularity is somewhat ill-defined. There is mild interstitial prominence suggesting low-grade interstitial edema. No pulmonary consolidation is seen. There is no evidence of pleural fluid. IMPRESSION: Mild congestive heart failure with low-grade interstitial edema.
== END 2017-04-02 13:50 | disposition short-term general hospital (02) | DRG 308 ==
LOC: ER 02:54 → ICU 03:43
PROVIDERS: ADMIT Family Medicine; ATTEND Family Medicine
DX: I48.0 Paroxysmal atrial fibrillation (principal); J96.01 Acute respiratory failure with hypoxia; E43 Unspecified severe protein-calorie malnutrition; I13.2 Hypertensive heart and chronic kidney disease with heart failure and with stage 5 chronic kidney disease, or end stage renal disease; N18.5 Chronic kidney disease, stage 5; E87.2 Acidosis; J44.1 Chronic obstructive pulmonary disease with (acute) exacerbation; N17.9 Acute kidney failure, unspecified; Z68.1 Body mass index [BMI] 19.9 or less, adult; G25.81 Restless legs syndrome; F17.210 Nicotine dependence, cigarettes, uncomplicated; I08.0 Rheumatic disorders of both mitral and aortic valves; I50.9 Heart failure, unspecified; D64.9 Anemia, unspecified; Z88.6 Allergy status to analgesic agent; Z90.49 Acquired absence of other specified parts of digestive tract; Z90.710 Acquired absence of both cervix and uterus; Z90.89 Acquired absence of other organs; Z79.899 Other long term (current) drug therapy; Z79.82 Long term (current) use of aspirin; Z82.49 Family history of ischemic heart disease and other diseases of the circulatory system
CPT/HCPCS: 36415; 71010; 80053; 80307; 81001; 82550; 82553; 82803; 83605; 83690; 83735; 83880; 84443; 84484; 85007; 85025; 85027; 87040; 87086; 87641; 93005; 93306; 94640; 94760; 96361; 96374; 96375; J0696; J1160; J1170; J2060; J2930; J3490; J7120; J7512; J7620; 99285-25; G0479; J7030